=== PATIENT | male | born 1995 | race African-American/Black ===

== ENCOUNTER 2018-10-27 08:21 | Emergency (ER) | payer SELFPAY ==
[~2018-10-27] VITALS: Ht 177.8 cm; Wt 112.0 kg
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
[2018-10-27] MEDS ORDERED: NAPROXEN 500 MG TABLET PO STA (08:48)
[2018-10-27] MEDS ORDERED: HYDROcodone/APAP 5/325MG 1 TAB TABLET PO ONE (09:00)
[2018-10-27] MEDS ORDERED: DIPHTH,PERTUSS(ACELL),TET TOX 0.5 ML DISP.SYRIN. VAX IM ONE (09:00)
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
[2018-10-27 11:48] VITALS: BP 127/65
== END 2018-10-27 14:09 | disposition short-term general hospital (02) ==
LOC: ER 08:21
DX: S02.81XA Fracture of other specified skull and facial bones, right side, initial encounter for closed fracture (principal); S02.40CA Maxillary fracture, right side, initial encounter for closed fracture; S02.40EA Zygomatic fracture, right side, initial encounter for closed fracture; S01.411A Laceration without foreign body of right cheek and temporomandibular area, initial encounter; Y00.XXXA Assault by blunt object, initial encounter; Y93.89 Activity, other specified; Y92.89 Other specified places as the place of occurrence of the external cause; Y99.8 Other external cause status
CPT/HCPCS: 12011; 70450; 70486; 90471; 90715; 99285